=== PATIENT | male | born 1955 | race Caucasian/White ===

== ENCOUNTER 2017-03-19 07:48 | Inpatient (IN) | payer BC ==
[2017-02-18 11:43] VITALS: BMI 26.0
--- NOTE | 2017-02-18 12:13 | PAT Medication Instructions ---
Service Date Feb 18, 2017. Current Home Medication List Aspirin (Aspirin Ec), 81 MG PO QAM Atorvastatin (Lipitor), 40 MG PO QPM Carvedilol (Coreg), 3.125 MG PO BID Olmesartan Medoxomil (Benicar), 20 MG PO QAM Medication Instructions For Your Scheduled Surgery - Hold the following medications the morning of surgery: Olmesartan Medoxomil (Benicar), 20 MG PO QAM - Take the following medications the morning of surgery with a sip of water: Aspirin (Aspirin Ec), 81 MG PO QAM Carvedilol (Coreg), 3.125 MG PO BID - Take the following medications as scheduled the night before surgery: Atorvastatin (Lipitor), 40 MG PO QPM Carvedilol (Coreg), 3.125 MG PO BID If you have any questions please call us at [phone] or [phone] or [phone]
--- NOTE | 2017-02-18 12:57 | DIAGNOSTIC IMAGING REPORT ---
CHEST 2 VIEWS ROUTINE CLINICAL HISTORY: PAT preoperative evaluation COMPARISON STUDY: No previous studies for comparison. FINDINGS: The bones soft tissues and hemidiaphragms are normal. The cardiomediastinal silhouette is normal. The lungs are clear. The pulmonary vasculature is normal. IMPRESSION: Negative chest. The above report was generated using voice recognition software. It may contain grammatical, syntax or spelling errors. Electronically signed by: Eric Chaudhry M.D. 02/18/2017 12:56 PM Dictated Date/Time: 02/18/2017 12:55 PM
[2017-02-18 13:30] LABS: BASO % 0.5 %; BASO ABS # 0.03 K/uL (0-0.2); EOS % 3.3 %; EOS ABS # 0.19 K/uL (0-0.5); HEMATOCRIT 41.9 % (42-52); HEMOGLOBIN 14.2 g/dL (14.0-18.0); IG# 0.01 K/uL (0.00-0.02); LYMPH % 32.2 %; LYMPH ABS # 1.84 K/uL (1.2-3.4); MEAN CELL VOLUME 93.1 fL (80-100); MEAN CORPUSCULAR HEMOGLOBIN 31.6 pg (25-34); MEAN CORPUSCULAR HGB CONC 33.9 g/dl (32-36); MEAN PLATELET VOLUME 9.5 fL (7.4-10.4); MONO % 11.2 %; MONO ABS # 0.64 K/uL (0.11-0.59); NEUT % 52.6 %; PLATELET COUNT 194 K/uL (130-400); RED CELL DISTRIBUTION WIDTH CV 12.4 % (11.5-14.5); RED CELL DISTRIBUTION WIDTH SD 42.1 fL (36.4-46.3); WHITE BLOOD COUNT 5.71 K/uL (4.8-10.8)
[2017-02-18 13:37] LABS: HEMOGLOBIN A1C 5.7 % (4.5-5.6)
[2017-02-18 13:41] LABS: PTT PATIENT 26.8 SECONDS (21.0-31.0)
[2017-02-18 14:04] LABS: ALBUMIN 4.1 gm/dl (3.4-5.0); CALCIUM 9.1 mg/dl (8.5-10.1); CREATININE 0.94 mg/dl (0.60-1.40); POTASSIUM 4.3 mmol/L (3.5-5.1)
--- NOTE | 2017-02-26 11:44 | HISTORY & PHYSICAL EXAMINATION ---
DATE OF ADMISSION: 03/19/2017 CHIEF COMPLAINT: Left knee pain. HISTORY OF PRESENT ILLNESS: Mr. Jean is a 61-year-old male with a 15-year history of left knee pain. The patient rates his pain a 5/10. He has pain with his daily activities. He has limited standing and walking tolerance. Pain is worse with weightbearing. The patient has had multiple knee arthroscopies, which have shown advanced disease. He is now scheduled for a left knee replacement. PAST MEDICAL HISTORY: Heart disease with history of NV in 2012 with one stent, hypertension, and hypercholesterolemia. He denies diabetes or DVT. PAST SURGICAL HISTORY: Left knee arthroscopy, cardiac stent placement, and lithotripsy. SOCIAL HISTORY: The patient drinks 4 drinks per day. He denies tobacco use. He lives in a single kale home. He is and retired. FAMILY HISTORY: Negative for DVT. MEDICATIONS: Aspirin 81 mg daily, olmesartan 20 mg daily, carvedilol 3.125 mg b.i.d., atorvastatin 40 mg daily. ALLERGIES: None. REVIEW OF SYSTEMS: See HPI. Ten other systems reviewed, all negative. PHYSICAL EXAMINATION: VITAL SIGNS: Height 6 feet 0 inches, weight 196 pounds, BMI is 21. GENERAL: This is a well-developed, well-nourished male who is alert and oriented x3. Mood and affect are appropriate. HEENT: Normocephalic, atraumatic. Mucous membranes are moist and intact. NECK: Supple without lymphadenopathy. HEART: Regular rate and rhythm without murmurs, rubs or gallops. LUNGS: Clear to auscultation without wheezes or rhonchi. ABDOMEN: Soft and nontender. Bowel sounds are equal and active. EXTREMITIES: No ecchymosis, redness or warmth. He has varus deformity. Range of motion is from 0-115 degrees with +2 to 3 laxity. He has no effusion, no edema. He is neurovascularly intact with +5/5 strength. X-RAY EXAMINATION: AP and lateral views show joint space narrowing and osteophyte formation. IMPRESSION: Degenerative joint disease, left knee. PLAN: The patient will be admitted for a left total knee arthroplasty. We will plan on aspirin for DVT prophylaxis. The patient will be using [facility] for home PT. Referral has been placed preoperatively.
[~2017-03-19] VITALS: Ht 182.9 cm; Wt 89.2 kg
[2017-03-19] VITALS (10 sets, daily range): BP systolic 100–133; BP diastolic 64–88; PULSE 60–81; TEMP 36.4–36.7; O2SAT 96–99; Ht 182.9 cm; Wt 89.2 kg
[~2017-03-19 07:48] MED LIST: ACETAMINOPHEN 500 MG TAB PO SCH; ASPI81TA28 PO; ATOR-24 PO; BUPIVACAINE 0.5 % 5 MG/1 ML PF 10ML VIAL ONE; CARV3.122 PO; CEFAZOLIN 2000MG IV PUSH 15 ML IV SCH; CeleBREX 200 MG CAP PO SCH; DEXAMETHASONE 4 MG TAB PO SCH; FAMOTIDINE 20 MG TAB PO SCH; GABAPENTIN 300 MG CAP PO SCH; LACTATED RINGER'S 1000ML 1,000 ML IV SCH; LACTATED RINGER'S 1000ML 500 ML IV SCH; METOCLOPRAMIDE HCL 10 MG TAB PO SCH; OLME1TAB11 PO; ROPIVACAINE 5MG/ML 30 ML 150 MG, BUPIVACAINE 0.5% MPF INJ 30 ML, EpINEphrine HCL INJ 0.... INFIL SCH
--- NOTE | 2017-03-19 08:11 | History & Physical Bridge Note ---
H&P Re-Evaluation Bridge Note: I have examined the patient, reviewed the History & Physical and in the interval since the performance of the History & Physical I have noted the following changes of clinical significance: No changes noted
[2017-03-19] MEDS ORDERED: PROPOFOL IV EMULSION 10 MG/ML 20 ML VIAL IV ONE (08:32)
[2017-03-19] MEDS ORDERED: LIDOCAINE HCL 2% 2 ML VIAL (20MG/ML) ONE (08:32)
[2017-03-19] MEDS ORDERED: MIDAZOLAM HCL 1 MG/ML 2ML VIAL ONE ×3 (08:32→09:25)
[2017-03-19] MEDS ORDERED: FENTANYL CITRATE INJ 50 MCG/1 ML 2 ML VIAL ONE (08:32)
[2017-03-19] MEDS ORDERED: POVIDONE-IODINE OP SOLN 30 ML BTL ONE (08:58)
[2017-03-19] MEDS ORDERED: BACITRACIN 50000 UNIT VIAL ONE (08:58)
[2017-03-19] MEDS ORDERED: ORTHO JOINT ANESTHETIC ONE (08:58)
[2017-03-19] MEDS ORDERED: PHENYLEPHRINE 100MCG/ML 5ML SYR ONE (09:49)
[2017-03-19] MEDS ORDERED: ONDANSETRON INJ 2 MG/ML 2 ML VIAL IV PRN ×2 (10:15→11:15)
[2017-03-19] MEDS ORDERED: ATROPINE SULFATE 0.1 MG/ML 5ML SYR IV PRN (10:15)
[2017-03-19] MEDS ORDERED: EpHEDrine SULFATE INJ 50 MG/ML AMP IV PRN (10:15)
[2017-03-19] MEDS ORDERED: FENTANYL CITRATE INJ 50 MCG/1 ML 2 ML VIAL IV PRN (10:15)
--- NOTE | 2017-03-19 10:30 | [facility] Post Operative Brief Note ---
Immediate Operative Summary Operative Date Mar 19, 2017. Pre-Operative Diagnosis Degenerative joint disease, left knee. Post-Operative Diagnosis Degenerative joint disease, left knee. Procedure(s) Performed Left total knee arthroplasty-cemented Surgeon Dr. Serafin Fuller Traffic Control Specialist Surgeon(s) Eric Rader PA-C Estimated Blood Loss 5ml Findings Consistent with Post-Op Diagnosis Specimens Permanent Specimen A) Left knee bone and tissue Anesthesia Type MAC Spinal Regional Complication(s) none Disposition Disposition: Recovery Room / PACU
--- NOTE | 2017-03-19 10:31 | [facility] Operative Report ---
Operative Report Operative Date Mar 19, 2017. Pre-Operative Diagnosis Degenerative joint disease, left knee. Post-Operative Diagnosis Degenerative joint disease, left knee. Procedure(s) Performed Left total knee arthroplasty-cemented utilizing [employer] journey 2 patient matched total knee arthroplasty size 8 femur 7 tibia 11 poly-[address] Serafin Fuller [employer] Teacher Surgeon(s) Eric Rader PA-C Estimated Blood Loss 5ml Findings Patient presents with severe end-stage tricompartmental degenerative joint disease varus alignment left knee with subchondral cystic changes sclerosus marginal osteophytes large muscle conservative therapy presents for total knee arthroplasty after failing other times injections bracing relative rest activity modification Specimens Permanent Specimen A) Left knee bone and tissue Anesthesia Type MAC Spinal Regional Complication(s) none Disposition Recovery Room / PACU Indications Patient presents after failing attempts at conservative management including injections anti-inflammatories relative rest patient has an subchondral sclerosis osteophytes marginal osteophytes cystic changes varus alignment malalignment of the knee Description of Procedure After proper prepping and draping of the left lower extremity anterior midline incision was made over the region of the extensor extensor mechanism after meticulous hemostasis was obtained and maintained in subcutaneous tissues a medial parapatellar incision was made The patella was subluxed lateralward the medial lateral gutter were cleaned from any hypertrophic synovitis and scar tissue of the distal femoral block was placed and the distal femoral osteotomy cut was made subsequently the chamfers anterior and posterior osteotomy cuts were made utilizing the 4-in-1 block the tibia was subsequently subluxed anteriorward medial and ateral meniscal remnants were excised in their entirety remnants of the anterior and posterior cruciate ligaments were excised in their entirety excellent exposure of the proximal tibia was obtained the tibial osteotomy guide was placed on the proximal tibial osteotomy cut was made once again the knee was irrigated with copious amounts of sterile saline solution the patella was subsequently everted lateralward thickened scar tissue around the patella was removed the patella was subsequently cut utilizing a freehand technique and was drilled prepared for final preparation and placement of patella socially flexion-extension gaps were checked and the equal and symmetric trials were placed to the appropriate femoral and tibial trials with poly-spacer being placed for equal flexion and extension gaps and full range of motion including extension to 0 and flexion to 140 the trial components after having been taken to recovery range of motion was subsequently removed meticulous hemostasis was obtained and maintained subsequently a knee block injection of joint cocktail including ropivacaine 0.5% 150 mg. Bupivacaine 0.5 % epinephrine 1-200,030 mL's toradol 30 mg dexamethasone 4 mg ketamine 10 mg clonidine 100 micrograms normal saline solution 30 mg was infiltrated into the soft tissues of the posterior knee medial lateral gutters and periosteal synovium special attention was paid to protect neurovascular structures at all times subsequently trial components having been removed the knee was irrigated with sterile saline solution. debris was removed the proximal tibia was subsequently prepared and was made ready for the placement of the tibial component tibial component was also cemented and tamped into position the femoral component was subsequently placed and cemented in the position the patellar component was subsequently cemented in position because hemostasis once again obtained and maintained wound having been thoroughly irrigated with debridement and debridement lavage was performed as well as a medial parapatellar incision closed with #1 Vicryl in interrupted fashion subcutaneous was closed with #2 Vicryl skin was closed with skin clips. PA-C was necessary for prepping and drapping as well as wound closure of deep fascia Sub cutaneous tissue and skin and was necessary for the case. A sterile compressive dressing was placed patient was taken to recovery in stable condition of report dictated by Jonny I attest to the content of the Intraoperative Record and any orders documented therein. Any exceptions are noted below. I attest to the content of the Intraoperative Record and any orders documented therein. Any exceptions are noted below.
[2017-03-19] MEDS ORDERED: SOD PHOSPHATE/SOD BIPHOSPHATE ENEMA 132 ML BTL PR PRN (11:15)
[2017-03-19] MEDS ORDERED: BISACODYL 10 MG SUPP PR PRN (11:15)
[2017-03-19] MEDS ORDERED: OXYCODONE HCL IR 5 MG TAB (IMMEDIATE RELEASE) PO PRN (11:15)
[2017-03-19] MEDS ORDERED: MAGNESIUM HYDROXIDE SUSP 30 ML UDC PO PRN (11:15)
[2017-03-19] MEDS ORDERED: TRAMADOL HCL 50 MG TAB PO PRN (11:15)
[2017-03-19] MEDS ORDERED: MoRPHine SULFATE 4 MG/ML 1 ML CARP\\VIAL IV PRN (11:15)
[2017-03-19] MEDS ORDERED: KETOROLAC TROMETHAMINE 30 MG/ML VIAL IV. PRN (11:15)
[2017-03-19] MEDS ORDERED: CEFAZOLIN IV 2,000 MG in DEXTROSE 5% 50ML 50 ML IV SCH (11:15)
[2017-03-19] MEDS ORDERED: ALUMINUM/MAGNESIUM/SIMETH (MAALOX MAX) 30 ML UDC PO PRN (11:15)
[2017-03-19] MEDS ORDERED: ZOLPIDEM TARTRATE 5 MG TAB PO PRN (11:15)
--- NOTE | 2017-03-19 11:35 | DIAGNOSTIC IMAGING REPORT ---
LEFT KNEE 2 VIEWS CLINICAL HISTORY: Degenerative arthritis. Postoperative study. COMPARISON: None. DISCUSSION: There are postsurgical changes of a total left knee arthroplasty and patellar resurfacing. The femoral and tibial components appear well seated. Overlying surgical drains are evident. There is air within soft tissues consistent with recent surgery. IMPRESSION: Postsurgical changes of a total left knee arthroplasty. Electronically signed by: Andrew Lutz M.D. 03/19/2017 11:34 AM Dictated Date/Time: 03/19/2017 11:33 AM
--- NOTE | 2017-03-19 12:41 | Anesthesiology Progress Note ---
Anesthesia Post Op Note Date & Time Mar 19, 2017 at 12:41 Vital Signs Pain Intensity: 0 Vital Signs Past 12 Hours Date Time Temp Pulse Resp B/P (MAP) Pulse Ox O2 Delivery O2 Flow Rate FiO2 03/19/17 12:03 58 12 98 03/19/17 12:03 58 12 03/19/17 12:01 112/73 03/19/17 11:58 58 15 03/19/17 11:58 58 15 97 03/19/17 11:56 101/70 03/19/17 11:53 55 14 98 03/19/17 11:53 55 14 03/19/17 11:51 106/70 03/19/17 11:48 56 12 03/19/17 11:48 57 12 98 03/19/17 11:46 116/73 03/19/17 11:43 58 17 03/19/17 11:43 56 17 97 03/19/17 11:42 36.8 59 16 116/73 (78) 97 Nasal Cannula 2 03/19/17 11:41 107/76 03/19/17 11:38 63 16 99 03/19/17 11:38 63 16 03/19/17 11:37 60 16 03/19/17 11:37 59 16 99 03/19/17 11:36 111/76 03/19/17 11:35 60 97 03/19/17 11:35 60 03/19/17 11:31 107/72 03/19/17 11:30 57 18 98 03/19/17 11:30 59 18 03/19/17 11:26 111/70 03/19/17 11:25 62 17 98 03/19/17 11:25 62 17 03/19/17 11:20 61 27 03/19/17 11:20 61 27 101/69 98 03/19/17 11:17 85/66 03/19/17 11:15 36.6 67 16 105/61 (67) 97 Nasal Cannula 2 03/19/17 11:15 60 17 03/19/17 11:15 70 17 105/61 97 03/19/17 08:25 36.6 64 18 133/88 97 Room Air Notes Mental Status: alert / awake / arousable, participated in evaluation Pt Amnestic to Procedure: Yes Nausea / Vomiting: adequately controlled Pain: adequately controlled Airway Patency, RR, SpO2: stable & adequate BP & HR: stable & adequate Hydration State: stable & adequate Neuraxial Anesthesia: was administered, sensory block is resolving Anesthetic Complications: no major complications apparent
[2017-03-19] MEDS ORDERED: MoRPHine SULFATE 2 MG/ML CARP IV PRN (13:00)
[2017-03-19] MEDS ORDERED: MoRPHine SULFATE 10 MG/ML CARP/VIAL IV PRN (13:00)
[2017-03-19] MEDS: D5W AND 1/2NSS + 20MEQ KCL 1,000 ML IV SCH ×2 (13:58→23:21)
[2017-03-19] MEDS: ACETAMINOPHEN 500 MG TAB PO SCH ×2 (13:59→21:11)
[2017-03-19] MEDS: CEFAZOLIN IV 2,000 MG in SYRINGE 0 ML IV SCH (16:43)
[2017-03-19] MEDS ORDERED: SENNA 8.6 MG TAB PO SCH (21:00)
[2017-03-19] MEDS ORDERED: ATORVASTATIN 40 MG TAB PO SCH (21:00)
[2017-03-19] MEDS: ASPIRIN 81 MG ECTAB PO SCH (21:10)
[2017-03-19] MEDS: DOCUSATE SODIUM 100 MG CAP PO SCH (21:10)
[2017-03-19] MEDS: CARVEDILOL 3.125 MG TAB PO SCH (21:11)
[2017-03-20] MEDS: CEFAZOLIN IV 2,000 MG in SYRINGE 0 ML IV SCH (01:24)
[2017-03-20 03:05] VITALS: BP 112/69; PULSE 65; TEMP 36.7; O2SAT 97
[2017-03-20] MEDS: ACETAMINOPHEN 500 MG TAB PO SCH ×2 (05:34→14:19)
[2017-03-20 06:15] LABS: HEMATOCRIT 32.4 % (42-52); HEMOGLOBIN 11.1 g/dL (14.0-18.0); MEAN CORPUSCULAR HEMOGLOBIN 31.5 pg (25-34); MEAN CORPUSCULAR HGB CONC 34.3 g/dl (32-36); MEAN PLATELET VOLUME 9.2 fL (7.4-10.4); PLATELET COUNT 172 K/uL (130-400); RED CELL DISTRIBUTION WIDTH CV 12.5 % (11.5-14.5); RED CELL DISTRIBUTION WIDTH SD 41.9 fL (36.4-46.3)
[2017-03-20 06:53] LABS: CALCIUM 8.4 mg/dl (8.5-10.1); CREATININE 0.92 mg/dl (0.60-1.40); POTASSIUM 4.2 mmol/L (3.5-5.1)
[2017-03-20 07:04] VITALS: BP 110/64; PULSE 62; TEMP 36.4; O2SAT 96
--- NOTE | 2017-03-20 07:44 | Orthopedic Progress Note ---
Orthopedic Progress Note Date of Service Mar 20, 2017. Subjective Post OP Day: 1 Reports: feeling well, Denies: chest pain, SOB, nausea / vomiting, light headedness, calf pain Additional Notes: Having some mild pain behind the knee. Otherwise, feeling well. Objective calves soft nontender, N/V intact, dressing C/D/I, A&O x3, toes mobile, hemovac drainage (250ml latest shift) Date Time Temp Pulse Resp B/P (MAP) Pulse Ox O2 Delivery O2 Flow Rate FiO2 03/20/17 07:04 36.4 62 16 110/64 (79) 96 Room Air 03/20/17 03:05 36.7 65 18 112/69 (83) 97 Room Air 03/19/17 23:15 Room Air 03/19/17 23:15 36.7 70 18 117/66 (83) 96 Room Air 03/19/17 21:00 81 127/78 (94) 03/19/17 20:35 36.4 81 17 116/71 (86) 97 Room Air 03/19/17 15:20 96 Room Air 03/19/17 15:15 36.4 66 16 103/67 (79) 96 Room Air 03/19/17 14:14 36.5 61 19 100/64 (76) 99 Nasal Cannula 2.0 03/19/17 13:11 36.4 63 19 115/66 (82) 99 Nasal Cannula 2.0 03/19/17 12:54 36.5 63 12 116/73 (87) 96 Nasal Cannula 2.0 03/19/17 12:48 60 19 124/84 (97) 96 Nasal Cannula 2.0 03/19/17 12:15 Nasal Cannula 2.0 03/19/17 12:03 58 12 98 03/19/17 12:03 58 12 03/19/17 12:01 112/73 03/19/17 11:58 58 15 03/19/17 11:58 58 15 97 03/19/17 11:56 101/70 03/19/17 11:53 55 14 98 03/19/17 11:53 55 14 03/19/17 11:51 106/70 03/19/17 11:48 56 12 03/19/17 11:48 57 12 98 03/19/17 11:46 116/73 03/19/17 11:43 58 17 03/19/17 11:43 56 17 97 03/19/17 11:42 36.8 59 16 116/73 (78) 97 Nasal Cannula 2 03/19/17 11:41 107/76 03/19/17 11:38 63 16 99 03/19/17 11:38 63 16 03/19/17 11:37 60 16 03/19/17 11:37 59 16 99 03/19/17 11:36 111/76 03/19/17 11:35 60 97 03/19/17 11:35 60 03/19/17 11:31 107/72 03/19/17 11:30 57 18 98 03/19/17 11:30 59 18 03/19/17 11:26 111/70 03/19/17 11:25 62 17 98 03/19/17 11:25 62 17 03/19/17 11:20 61 27 03/19/17 11:20 61 27 101/69 98 03/19/17 11:17 85/66 03/19/17 11:15 36.6 67 16 105/61 (67) 97 Nasal Cannula 2 03/19/17 11:15 60 17 03/19/17 11:15 70 17 105/61 97 03/19/17 08:25 36.6 64 18 133/88 97 Room Air Laboratory Results 24 Hours: Test 03/20/17 06:05 Hematocrit 32.4 % Hemoglobin 11.1 g/dL Prothromb Time International Ratio 1.0 Prothrombin Time 11.0 SECONDS Assessment & Plan Assessment: POD 1 s/p Left TKA Plan: PT/OT Plan for OPPT upon DC Moderate drainage from HV. Dr Fuller to decide today if pt should go home or stay. Inhouse Planning Pain Management: Celebrex, Toradol, Ultram, Morphine, PO Tylenol, Oxy IR DVT Prophylaxis: TEDs, SCDs, ASA Discharge Planning Discharge Planning: home with oppt
--- NOTE | 2017-03-20 07:47 | Discharge Instructions ---
Discharge Instructions Date of Service Mar 20, 2017. Admission Reason for Admission: Left Knee Osteoarthritis Discharge Discharge Diagnosis / Problem: Left Knee Djd Discharge Goals Goal(s): Decrease discomfort, Improve function, Increase independence Activity Recommendations Activity Limitations: per Instructions/Follow-up section Weightbearing Status: Left weightbearing (as tolerated) . Instructions / Follow-Up Instructions / Follow-Up ACTIVITY RECOMMENDATIONS: SELF CARE INSTRUCTIONS AFTER TOTAL KNEE REPLACEMENT A. You may need to continue a physical therapy program after discharge from the hospital. There are several options available to you. Your doctor will assist you in selecting the best one for you. 1. An out-patient facility 2 to 3 times a week for therapy or home therapy. 2. Continue working on all exercises taught to you in the hospital. Your goals should be to increase bending of your knee to 90 degrees and beyond and to fully straighten your knee. B. You may progress at your own pace from walking with a walker or crutches to a cane; then to no assistive devices. C. Make walking a part of your daily routine. Be up as much as comfortable with rest periods throughout the day. Rest with leg elevation is very important. Use the ice wrap frequently for the first 3-4 weeks. D. There are no restrictions on activities. You may ride in a car, shop, participate in tear down worker and all social activities. E. Wear the long elastic stockings (BHAVYA hose) 20 hours a day for 2 weeks after surgery. They can be removed several times a day for laundering and for a bath. F. You may shower, no tub baths until cleared by your doctor. SPECIAL CARE INSTRUCTIONS: VERY IMPORTANT TO READ AND REVIEW A. There are a few signs you need to watch for after you are home. Call [facility] [place] if you notice any of the followin. Increased severe knee pain. Some pain is expected especially when you exercise. 2. Increased swelling in your leg or knee; pain or swelling of the calf muscle in either lower leg. 3. Any fluid drainage from the incision. 4. Shortness of breath or chest pain. B. Please call [facility] at if you have any concerns or questions about your operation or recovery. The doctor or his nurse will return your call promptly. C. You must take antibiotics before dental work, bladder, bowel or other surgery. Your doctor will provide you with a permanent care to carry describing this precaution. IMPORTANT: * REMEMBER TO TAKE ASPIRIN, 81 MG, TWICE DAILY FOR 4 WEEKS UNLESS OTHERWISE DIRECTED. THIS IS YOUR BLOOD THINNER. * HIGH RISK PATIENTS MAY BE PRESCRIBED A STRONGER BLOOD THINNER. THIS WILL BE PROVIDED AT DISCHARGE. * CALL IF INCREASED PAIN, REDNESS, DRAINAGE OR FEVER GREATER THAT 101. * WEAR BHAVYA HOSE 20 HOURS PER DAY FOR 2 WEEKS. * DERMABOND Prineo- This is a mesh tape dressing that is covered with glue. It should remain in place until the incision is properly healed, usually 10-14 days. This dressing is designed to naturally slough off. You may trim the excess mesh tape as it peels off. Incision may be briefly wet in a shower. Dry immediately by blotting with a clean, dry towel. Do not bath or swim until instructed by your doctor. Do not scratch, rub, or pick at the dressing. Do not apply any topical ointments or lotions until dressing is completely removed and/or instructed by your doctor. There may be a small piece of suture material at one end of your incision. Do not pull or trim this. If it is bothersome or catching on clothing, you may cover it with a band-aid. . FOLLOW UP VISIT: If appointment is not already scheduled: Please call [facility] [place] to make a follow-up appointment for 2 weeks after your surgery at . Current Hospital Diet Patient's current hospital diet: Regular Diet Discharge Diet Recommended Diet: Regular Diet Procedures Procedures Performed: Left total knee arthroplasty-cemented utilizing [employer] 2 patient matched total knee arthroplasty size 8 femur 7 tibia 11 poly-38 oval patella Pending Studies Studies pending at discharge: no Laboratory Results Hemoglobin A1c Test 02/18/17 12:30 Range/Units Estimated Average Glucose 117 mg/dl Hemoglobin A1c 5.7 H 4.5-5.6 % Medical Emergencies . Who to Call and When: Medical Emergencies: If at any time you feel your situation is an emergency, please call 911 immediately. . Non-Emergent Contact Non-Emergency issues call your: Surgeon Call Non-Emergent contact if: temperature is above 101.5, your pain is not controlled, your pain is worsening, wound has increased drainage, wound has increased redness . "Provider Documentation" section prepared by Howard Giang. . VTE Core Measure Inpt VTE Proph given/why not?: Other Anticoagulation, T.E.D. Stockings, SCD's [place] Drug Monitoring Program Search Results: patient reviewed within database, no issues identified
--- NOTE | 2017-03-20 08:01 | Clinical Documentation Query ---
CLINICAL DOCUMENTATION QUERY Dr. JENSEN, In your clinical opinion is this patient being managed for: ( x ) Acute blood loss anemia ( ) Not Agree ( ) Other explanation of clinical findings (Please Explain) ( ) Unable to determine (Please Define) ( ) Need to Discuss The medical record reflects the following clinical findings, treatment, and risk factors. Clinical Indicators: 61 yo male presenting with L Knee DJD for L TKA. EBL of 5 cc with additional 1085 cc hemovac drainage. Baseline Hgb 14.2, Hct 41.9, post op Hgb 11.1, Hct 32.4. Treatment: IV fluids, monitor CBC Risk Factors: surgical and hemovac blood loss Please clarify and document your clinical opinion in the progress notes and discharge summary. Terms such as "probable", "suspected", "likely", "questionable", "possible", or "still to be ruled out" are acceptable. IF IN AGREEMENT, YOU MUST DOCUMENT ABOVE DIAGNOSTIC STATEMENT IN DAILY PROGRESS NOTES AND DISCHARGE SUMMARY. This document is not part of the patient's record. Thank You, Kelley Esparza, RN [phone]
[2017-03-20] MEDS: D5W AND 1/2NSS + 20MEQ KCL 1,000 ML IV SCH (08:50)
[2017-03-20] MEDS: ASPIRIN 81 MG ECTAB PO SCH (08:50)
[2017-03-20] MEDS: CARVEDILOL 3.125 MG TAB PO SCH (08:51)
[2017-03-20] MEDS: DOCUSATE SODIUM 100 MG CAP PO SCH (08:51)
[2017-03-20] MEDS ORDERED: OLMESARTAN MEDOXOMIL 20 MG TAB PO SCH (09:00)
[2017-03-20] MEDS ORDERED: MULTIVITAMIN TAB PO SCH (09:00)
[2017-03-20 11:06] VITALS: BP 98/62; PULSE 61; TEMP 36.4; O2SAT 98
[2017-03-20] MEDS ORDERED: ASPEC81 PO (11:30)
[2017-03-20] MEDS ORDERED: ONDA8TAB6 PO (11:31)
[2017-03-20] MEDS ORDERED: CLB200 PO (11:31)
[2017-03-20] MEDS ORDERED: RXC5 PO (11:31)
[2017-03-20] MEDS ORDERED: CLC100 PO (11:31)
[2017-03-20] MEDS ORDERED: ACET-24 PO (11:31)
--- NOTE | 2017-03-20 12:00 | Discharge Summary ---
Orthopedic Discharge Summary Admission Date/Reason Mar 19, 2017 at 08:08 Left Knee Osteoarthritis. Discharge Date/Disposition Mar 20, 2017 Home Diagnosis Principal Diagnosis: Left Knee Osteoarthritis Procedure(s) Performed Left total knee arthroplasty-cemented utilizing [facility] [employer] [facility] 2 patient matched total knee arthroplasty size 8 femur 7 tibia 11 poly-38 oval patella Consultations NONE Medication Reconciliation New Medications: Ondansetron Hcl (Zofran) 8 Mg Tab 8 MG PO Q8 PRN for Nausea, #20 TAB Acetaminophen (Sb Non-Aspirin Extra Stre) 500 Mg Tab 1000 MG PO Q8H, #63 TAB Aspirin (Aspirin EC Low Dose) 81 Mg Ectab 81 MG PO BID for 30 Days, #60 TAB Celecoxib (Celebrex) 200 Mg Cap 200 MG PO BID for 30 Days, #60 CAP Docusate Sodium (Docusate Sodium) 100 Mg Cap 100 MG PO BID for 10 Days, #20 CAP Oxycodone HCl (Oxycodone HCl) 5 Mg Tab 5-10 MG PO Q4H PRN for Pain, #60 TAB Continued Medications: Atorvastatin (Lipitor) 40 Mg Tab 40 MG PO QPM, TAB Carvedilol (Coreg) 3.125 Mg Tab 3.125 MG PO BID, TAB Olmesartan Medoxomil (Benicar) 20 Mg Tab 20 MG PO QAM, TAB Discontinued Medications: Aspirin (Aspirin Ec) 81 Mg Tab 81 MG PO QAM Admission Physical Exam As per Admitting History & Physical. Hospital Course Patient was a same day admission after undergoing a successful left TKA. He tolerated the procedure well. Post-operatively, his activity was progressed and well tolerated. Please refer to daily progress notes and PT notes for complete details. After exam on 03/20/17, patient felt to be stable for discharge home with OPPT. He will follow up in our [place] office on 03/21/17 to have his hemovac drain removed. Patient will f/u in the office in 2 weeks for further evaluation including x-rays and incision check, sooner if having any issues or concerns. Below are pertinent labs/studies during their hospital stay: Last Vital Signs Documentation Date Time Temp Pulse Resp B/P (MAP) Pulse Ox O2 Delivery O2 Flow Rate FiO2 03/20/17 11:06 36.4 61 16 98/62 (74) 98 Room Air 03/19/17 14:14 2.0 Last Resulted CBC 03/20/17 06:05 Last Resulted BMP 03/20/17 06:05 Discharge Instructions ACTIVITY RECOMMENDATIONS: SELF CARE INSTRUCTIONS AFTER TOTAL KNEE REPLACEMENT A. You may need to continue a physical therapy program after discharge from the hospital. There are several options available to you. Your doctor will assist you in selecting the best one for you. 1. An out-patient facility 2 to 3 times a week for therapy or home therapy. 2. Continue working on all exercises taught to you in the hospital. Your goals should be to increase bending of your knee to 90 degrees and beyond and to fully straighten your knee. B. You may progress at your own pace from walking with a walker or crutches to a cane; then to no assistive devices. C. Make walking a part of your daily routine. Be up as much as comfortable with rest periods throughout the day. Rest with leg elevation is very important. Use the ice wrap frequently for the first 3-4 weeks. D. There are no restrictions on activities. You may ride in a car, shop, participate in material distributor and all social activities. E. Wear the long elastic stockings (BHAVYA hose) 20 hours a day for 2 weeks after surgery. They can be removed several times a day for laundering and for a bath. F. You may shower, no tub baths until cleared by your doctor. SPECIAL CARE INSTRUCTIONS: VERY IMPORTANT TO READ AND REVIEW A. There are a few signs you need to watch for after you are home. Call [facility] if you notice any of the followin. Increased severe knee pain. Some pain is expected especially when you exercise. 2. Increased swelling in your leg or knee; pain or swelling of the calf muscle in either lower leg. 3. Any fluid drainage from the incision. 4. Shortness of breath or chest pain. B. Please call [facility] at if you have any concerns or questions about your operation or recovery. The doctor or his nurse will return your call promptly. C. You must take antibiotics before dental work, bladder, bowel or other surgery. Your doctor will provide you with a permanent care to carry describing this precaution. IMPORTANT: * REMEMBER TO TAKE ASPIRIN, 81 MG, TWICE DAILY FOR 4 WEEKS UNLESS OTHERWISE DIRECTED. THIS IS YOUR BLOOD THINNER. * HIGH RISK PATIENTS MAY BE PRESCRIBED A STRONGER BLOOD THINNER. THIS WILL BE PROVIDED AT DISCHARGE. * CALL IF INCREASED PAIN, REDNESS, DRAINAGE OR FEVER GREATER THAT 101. * WEAR BHAVYA HOSE 20 HOURS PER DAY FOR 2 WEEKS. * DERMABOND Prineo- This is a mesh tape dressing that is covered with glue. It should remain in place until the incision is properly healed, usually 10-14 days. This dressing is designed to naturally slough off. You may trim the excess mesh tape as it peels off. Incision may be briefly wet in a shower. Dry immediately by blotting with a clean, dry towel. Do not bath or swim until instructed by your doctor. Do not scratch, rub, or pick at the dressing. Do not apply any topical ointments or lotions until dressing is completely removed and/or instructed by your doctor. There may be a small piece of suture material at one end of your incision. Do not pull or trim this. If it is bothersome or catching on clothing, you may cover it with a band-aid. FOLLOW UP VISIT: If appointment is not already scheduled: FOLLOW UP AT [facility] OFFICE ON 03/21/17 AT 8:00AM TO HAVE YOUR HEMOVAC DRAIN REMOVED. Please call [facility] to make a follow-up appointment for 2 weeks after your surgery at .
[2017-03-20 13:56] VITALS: BP 98/62; PULSE 61; TEMP 36.4; O2SAT 98
[2017-03-20] MEDS ORDERED: CeleBREX 200 MG CAP PO SCH (21:00)
== END 2017-03-20 14:50 | disposition home or self-care (01) | DRG 470 ==
LOC: C.ACU 07:48 → C.3E 08:08 → ENRESERV 11:29
PROVIDERS: ADMIT Orthopaedic Surgery; ATTEND Orthopaedic Surgery
PROC: 0SRD0J9 Replacement of Left Knee Joint with Synthetic Substitute, Cemented, Open Approach (ICD-10-PCS; principal; 2017-03-19 09:30)
DX: M17.12 Unilateral primary osteoarthritis, left knee (principal); M21.162 Varus deformity, not elsewhere classified, left knee; I10 Essential (primary) hypertension; I25.10 Atherosclerotic heart disease of native coronary artery without angina pectoris; I25.5 Ischemic cardiomyopathy; E78.00 Pure hypercholesterolemia, unspecified; I25.2 Old myocardial infarction; Z95.5 Presence of coronary angioplasty implant and graft; Z79.82 Long term (current) use of aspirin; Z79.899 Other long term (current) drug therapy